=== PATIENT | male | born 1985 | race Hispanic/Latino ===

== ENCOUNTER 2017-02-07 11:06 | Emergency (ER) | payer OTHER ==
[~2017-02-07] VITALS: Ht 172.7 cm; Wt 80.9 kg
[2017-02-07 11:10] VITALS: BP 129/91; PULSE 71; RESP 15; O2SAT 99
--- NOTE | 2017-02-07 12:03 | ED.REPORT ---
HPI-General Illness Date of Service Feb 07, 2017 ED Provider: Inderjit Gilliam MD Pt is a 31 year old male presenting to the ED complaining of lower back (4/10) and LLQ throbbing abdominal pain (3/10) onset after a table fell on his abdomen yesterday while he was carrying it downstairs at 1200. Pain is not really radiating, worse w/ movement. He also fell down 15 steps and landed at the bottom of the steps. He denies hitting his head or LOC. He states that his main concern was that this morning when he woke up he could barely move, and he has had right shoulder pain since yesterday. No other alleviating or exacerbating factors. No other complaints at this time. He is ambulatory and drove himself to the hospital today. Nursing Notes Stated Complaint: LWER BACK PAIN, POST FALL Chief Complaint: Multiple Trauma/Fall Nursing Notes Reviewed: Yes Allergies: Coded Allergies: No Known Allergies (Unverified , 02/07/17) General Time Seen by MD: 11:17 Chief Complaint Abdominal pain, Back pain Hx Obtained From: Patient Arrived By: Walk-in Sudden in Onset?: Yes Onset Occurred: Yesterday Symptom Duration: Since onset Caused by: Fall down stairs Location: : Abdomen: Back Quality: Painful, Throbbing Radiation: : Does not radiate Severity: Current: Pain level 4 out of 10 Severity: Maximum: Severe Recent Healthcare: No recent doctor visit, No recent hospitalization Similar Sx Previous: No Past Medical History Past Medical History Denies Past Surgical History Reports: Cholecystectomy Family History Denies any pertinent family hx Smoking History Never Smoker Social History Alcohol Use: "Social" Drug Use: Denies drug use Ambulatory Status Independent Review of Systems Full Review of Systems Constitutional: Denies: Chills, Fever Eyes: Denies: Blurred bilateral Ears / Nose / Throat: Denies: Earache bilateral Respiratory: Denies: Shortness of breath, Wheezing Cardiovascular: Denies: Chest pain GI: Reports: Abdominal pain, Denies: Vomiting Musculoskeletal: Reports: Back pain, Joint pain (Shoulder) Skin: Denies Swelling Neurologic: Denies: Change LOC, Headache Psychiatric: Denies: Agitation Complete sys rev & neg: except as marked. Physical Exam General: Airway patent, GCS of 15 --- eyes (4), verbal (5), motor (6) HEENT: Right eye normal with pupils 4-3 and briskly reactive Left eye normal with pupils 4-3 and briskly reactive Left tympanic membrane normal, right tympanic membrane normal Midface stable, no malocclusion No nasal septal hematoma No obvious external signs of trauma to the scalp appreciated No malocclusion or hemotympanum. Neck: nontender, trachea midline Lungs: Clear to auscultation bilaterally, normal work of breathing. Small amount of chest wall tenderness to palpation of lower part of chest. No crepitus. Chest: Stable without tenderness, no crepitus Cardiac: Regular rate and rhythm Abdomen: Epigastric and LLQ tenderness. Midline abdominal scar well healed. Back: Lower thoracic and upper lumbar tenderness to palpation. Pelvis: Stable Skin: Warm and well perfused Extremities: Left upper extremity grossly normal, no deformity. Right upper extremity grossly normal, no deformity. Right lower extremity grossly normal, no deformity. Left lower extremity grossly normal, no deformity. Mild diffuse tenderness to right shoulder. No bony tenderness. Pulses: Palpable to bilateral upper and lower extremities Neuro: Motor and sensory exams grossly within normal limits; patient localizes to pain. Vital Signs Vital Signs Date Time Temp Pulse Resp B/P Pulse Ox O2 Delivery O2 Flow Rate FiO2 02/07/17 15:33 36.6 72 20 118/59 98 Room Air 02/07/17 13:36 36.7 72 20 112/62 97 Room Air 02/07/17 11:10 36.9 71 15 129/91 99 Room Air Initial VS: Reviewed Interpretation & Diagnostics Interpretation & Diagnostics: REPEAT CT ABD/ PELVIS: IMPRESSION: 1. Small linear hypodensity in the right hepatic lobe appears unchanged from the recent prior study with no associated hematoma or free fluid identified. The finding is of doubtful clinical significance and unlikely to represent a laceration. 2. Elsewhere, no definite acute traumatic abnormality within the abdomen. Dictated by: Amol Sandra M.D. on 02/07/2017 at 18:16 Lab Results Interpretation Result Diagram: 02/07/17 1238 02/07/17 1238 Test 02/07/17 12:38 02/07/17 12:55 02/07/17 17:25 White Blood Count 7.5th/mm3 (3.8-10.1) Red Blood Count 5.29mil/mm3 (4.40-5.80) Hemoglobin 15.0g/dL (13.8-17.2) Hematocrit 44.9% (41.0-50.0) Mean Corpuscular Volume 84.9fL (81-100) Mean Corpuscular Hemoglobin 28.4pg (27.0-35.0) Mean Corpuscular Hemoglobin Concent 33.4% (32.0-37.0) Red Cell Distribution Width 13.7% (12.3-15.4) Platelet Count 151bil/L (150-400) Neutrophils (%) (Auto) 65.8% (40-74) Lymphocytes (%) (Auto) 24.8% (14-46) Monocytes (%) (Auto) 7.2% (4-12) Eosinophils (%) (Auto) 0.9% (0-5) Basophils (%) (Auto) 0.4% (0-3) Sodium Level 141mEq/L (134-144) Potassium Level 4.2mEq/L (3.5-5.2) Chloride Level 101mEq/L (97-108) Carbon Dioxide Level 25mmol/L (18-29) Blood Urea Nitrogen 14mg/dL (6-20) Creatinine 0.79mg/dL (0.76-1.27) Estimat Glomerular Filtration Rate 122mL/min (>59) Glucose Level 101mg/dL (60-99) Calcium Level 9.3mg/dL (8.5-10.1) Magnesium Level 2.2mg/dL (1.6-2.6) Total Bilirubin 0.3mg/dL (0.0-1.2) Aspartate Amino Transf (AST/SGOT) 16U/L (0-50) Alanine Aminotransferase (ALT/SGPT) 22U/L (0-44) Alkaline Phosphatase 73U/L (25-150) Troponin T < 0.010ug/L (0.0-0.011) Total Protein 7.3g/dL (6.4-8.4) Albumin 4.4g/dL (3.4-5.0) Hold Perez Top Tube Received (Received) Alcohols < 10mg/dL (0-10) Prothrombin Time 10.7sec (8.1-12.5) Prothromb Time International Ratio 1.00ratio Activated Partial Thromboplast Time 26.1sec (22.8-33.0) Urine Color Straw (YELLOW) Urine Appearance Clear (CLEAR,HAZY) Urine pH 7.0 (5.0-8.0) Urine Specific [place] 1.005 (1.003-1.035) Urine Protein Negativemg/dL (NEG,TRACE) Urine Glucose (UA) Negativemg/dL (NEGATIVE) Urine Ketones Negativemg/dL (NEGATIVE) Urine Occult Blood Negative (NEGATIVE) Urine Nitrite Negative (NEGATIVE) Urine Bilirubin Negative (NEGATIVE) Urine Urobilinogen Normalmg/dL (NORMAL) Urine Leukocyte Esterase Negative (NEGATIVE) Urine RBC 0-2/hpf (0-2) Urine WBC 0-5/hpf (0-5) Urine Epithelial Cells None/hpf (NONE-MOD) Urine Crystals None seen (NONE SEEN) Urine Bacteria None/hpf (NONE-FEW) Urine Hyaline Casts None/lpf (NONE) Urine Granular Casts None seen (NONE SEEN) Urine Waxy Casts None seen (NONE SEEN) Urine Red Blood Cell Casts None seen (NONE SEEN) Urine White Blood Cell Casts None seen (NONE SEEN) Urine Mucus None seen (None Seen) Urine Trichomonas None seen (NONE SEEN) Urine Yeast None (NONE SEEN) Urinalysis Comment None ECG Interpretation ECG Interpretation: ST elevation, probable normal early repol pattern. Time: 12:15 Interpreted by: ED physician Normal ECG Interpretation: Normal rate (72), Normal sinus rhythm X-Ray Interpretation Xray Interpretation: IMPRESSION: Normal right shoulder. Dictated by: Charles uHerta M.D. on 02/07/2017 at 13:56 X-Ray Ordered: Shoulder right Interpretation / Wet Read by: Interpret - Radiologist CT Head Interpretation IMPRESSION: 1. No acute intracranial findings. 2. 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 Dictated by: Alee Roa M.D. on 02/07/2017 at 14:15 Study: Head CT no contrast Interpretation / Wet Read by: Interpret - Radiologist CT Abd / Pelvis Interpretation IMPRESSION: 1. Subtle hepatic hypodensity along the posterior capsule of the right lobe. Small hepatic laceration cannot be excluded. However, there is no associated fluid collection to suggest hemoperitoneum. If the patient endorses focal right upper quadrant pain (or referred pain to the right shoulder), repeat surveillance scan of the abdomen at 4 hours may be helpful to exclude interval peritoneal bleed. 2. No other findings to suggest acute thoracic or abdominal injury. These findings were discussed with Dr. Gilliam at 2:29 PM on 01/28/17. 3. Normal appendix. Dictated by: Alee Roa M.D. on 02/07/2017 at 14:20 Study type: Abdominal CT IV contrast Interpretation / Wet Read by: Interpret - Radiologist CT C-Spine Interpretation IMPRESSION: 1. No acute cervical spine injury. Dictated by: Alee Roa M.D. on 02/07/2017 at 14:18 Study type: CT no contrast Interpretation / Wet Read by: Interpret - Radiologist Re-Eval/Medical Decision Med Decision/Clinical Course In summary, 31-year-old male presenting to the ED for evaluation after a fall down some stairs yesterday that resulted in a table landing on his abdomen. Differential is broad and includes acute intra-abdominal injury such as a splenic or liver laceration, small bowel contusion, pneumothorax, pancreatic injury, rib fractures, etc. Primary and secondary survey performed upon initial evaluation, noted above. X-ray of the patient's right shoulder negative for acute fracture or abnormality. CT scan of the patient's abdomen and pelvis demonstrates a subtle hepatic hypodensity on the posterior capsule of the right lobe; given his right shoulder pain, and after discussion with the radiologist, the decision was made to obtain a repeat scan in 4 hours. I also discussed this with the on-call surgeon Dr. Garcia. The repeat scan was negative for interval change. Laboratory studies here reassuring, reviewed. Head CT and C-spine CT negative for acute abnormalities; he does have some prior granulomatous disease, and I discussed this with him. He should follow up with his primary doctor with respect to this no neurological abnormalities, recent fever, or other complaints. Given the above, reasonable to discharge home with very careful return precautions, PCP follow-up in the next 1-2 days. Patient agreeable to the plan as stated, no further questions. Time of Eval: 14:56 Patient Status: Condition improved Re-Evaluation/Progress Note: Discussed CT and x ray results. Pt denies any recent fever, headache, or vision changes. Discussed plan for repeat CT and then discharge. Pt understands and agrees with plan. Consultation #1: Referral / Consult Name: Alee Roa MD Call Returned at: 14:51 Note: Radiologist. 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 Consultation #2: Referral / Consult Name: Les Garcia MD Consulted With: Surgeon Call Returned at: 17:00 Note: If the repeat scan at 4 hours doesn't show a change given he's 1 day out from the injury, it is reasonable to discharge with PCP follow up. Counseled Regarding: Diagnosis, Lab results, Need for follow-up, When/why to return to ED Discharge & Departure Primary Impression: Abdominal pain Abdominal location: generalized Qualified Code: R10.84 - Generalized abdominal pain Additional Impression: Fall Encounter type: initial encounter Qualified Code: W19.XXXA - Unspecified fall, initial encounter Disposition: Home Discharge Condition All VS Reviewed: Yes Condition: Improved Patient Instructions: Blunt Abdominal Injury (ED), Fall Prevention (ED) Additional Instructions: Your CT scans today did not show any dangerous cause for your pain today. Return to the ER if you develop any new or concerning symptoms such as abdominal pain, weakness, dizziness, severe headache, vision changes, or numbness/tingling in your feet or arms. Follow up with the primary doctor in the next several days as discussed. [employer] TRANSLATE Duncan tomografa computarizada hoy no mostr ninguna causa peligrosa para duncan dolor hoy. Vuelva a la manuel de emergencias si presenta sntomas nuevos o relacionados con sntomas tales bruna dolor abdominal, debilidad, mareos, dolor de beka mitch, cambios en la visin o entumecimiento / hormigueo en los pies o los brazos. Seguimiento con el mdico de cabecera en los prximos mckeon, bruna se arciniega comentado. Referrals: [facility] Scribe Attestation Portions of this note were transcribed by Victorina Del Toro. I, Dr. Gilliam personally performed the history, physical exam and medical decision-making; I reviewed and confirmed the accuracy of the information in the transcribed note. Signed by: Edin Carranza, 02/07/2017. copies to: [facility] Inderjit Gilliam MD Feb 07, 2017 12:03 VICTORINA DEL TORO Feb 07, 2017 12:38
[2017-02-07] MEDS ORDERED: 0.9% Sodium Chloride 1,000 ML IV ONE (12:09)
[2017-02-07] MEDS ORDERED: HYDROmorphone 0.5 mg/0.5 mL iSecure Syringe IVPUSH PRN (12:10)
[2017-02-07] MEDS ORDERED: Ondansetron 2 mg/mL 2 mL Inj IVPUSH ONE (12:10)
[2017-02-07 12:53] LABS: BASOPHILS % (AUTO) 0.4 % (0-3); EOSINOPHILS % (AUTO) 0.9 % (0-5); MONOCYTES % (AUTO) 7.2 % (4-12); Mean Corpuscular Hemoglobin 28.4 pg (27.0-35.0); Mean Corpuscular Volume 84.9 fL (81-100); NEUTROPHILS % (AUTO) 65.8 % (40-74); Platelet Count 151 bil/L (150-400)
[2017-02-07 13:26] LABS: TROPONIN T < 0.010 ug/L (0.0-0.011)
[2017-02-07 13:36] VITALS: BP 112/62; PULSE 72; RESP 20; O2SAT 97
[2017-02-07 13:36] LABS: Magnesium 2.2 mg/dL (1.6-2.6)
--- NOTE | 2017-02-07 14:20 | DRSVH ---
PROCEDURE: CT BRAIN WITHOUT CONTRAST ([id number]) INDICATIONS: abdominal pain s/p trauma TECHNIQUE: Noncontrast 4.5 mm thick angled axial sections acquired from the foramen magnum to the vertex, with c oronal reformats. COMPARISON: None. FINDINGS: Image quality: Excellent. CSF spaces: Basal cisterns are patent. No extra-axial fluid collections. Ventricles are normal in size and shape. Brain: No midline shift. No intracranial masses or hemorrhage. A punctate calcification is present within the left parietal lobe consistent with granulomatous disease. Manuel-white matter interface is normal. Skull and face: Calvarium and visualized facial bones are intact, without suspicious lesions. Sinuses: Visualized sinuses and mastoids are clear. IMPRESSION: 1. No acute intracranial findings. 2. 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 Dictated by: Alee Roa M.D. on 02/07/2017 at 14:15 Approved by: Alee Roa M.D. on 02/07/2017 at 14:18
--- NOTE | 2017-02-07 14:22 | DRSVH ---
PROCEDURE: CT CERVICAL SPINE WITHOUT CONTRAST ([id number]) INDICATIONS: abdominal pain s/p trauma TECHNIQUE: Noncontrast 3 mm thick sections acquired from the skull base to the T4 level. Sagittal and coronal r eformats were then constructed. For radiation dose reduction, the following was used: automated exp osure control, adjustment of mA and/or kV according to patient size. COMPARISON: [facility], CR, XR SHOULDER MIN 2VW RT, 02/07/2017, 13:24. FINDINGS: Image quality: Excellent. Bones: No fractures or dislocations. Visualized superior ribs are intact. Soft tissues: Prevertebral soft tissues are normal in thickness. No paravertebral hematomas. No ap ical pneumothoraces. IMPRESSION: 1. No acute cervical spine injury. Dictated by: Alee Roa M.D. on 02/07/2017 at 14:18 Approved by: Alee Roa M.D. on 02/07/2017 at 14:20
--- NOTE | 2017-02-07 14:33 | DRSVH ---
PROCEDURE: CT CHEST, ABDOMEN AND PELVIS WITH CONTRAST ([id number]) INDICATIONS: abdominal pain s/p trauma TECHNIQUE: After the administration of intravenous contrast, 5 mm thick sections acquired from the lung apices t o the symphysis. 5 mm coronal and sagittal reformats were performed, with additional 7 mm MIP reform ats through the lungs. For radiation dose reduction, the following was used: automated exposure con trol, adjustment of mA and/or kV according to patient size. COMPARISON: [facility], CR, XR SHOULDER MIN 2VW RT, 02/07/2017, 13:24. FINDINGS: Image quality: Excellent. CHEST: Lungs and pleura: No acute airspace opacities. No pleural effusions or pneumothorax. Central and p eripheral airways appear patent and normal in caliber. Mediastinum: Heart size is normal. No pericardial effusion. No mediastinal or hilar adenopathy by size criteria. Thoracic aorta and central pulmonary arteries are normal in size. Esophagus is tangela l in caliber. No hiatal hernia. Chest wall: No axillary or supraclavicular adenopathy by size criteria. Thyroid gland is unremarkab le. ABDOMEN: Solid organs: Liver and spleen are normal in size and enhancement. A linear, sagittally oriented hyp odensity is present along the posterior capsule of the right hepatic lobe (series 11, images 47-49). There is no discrete fluid collection adjacent to this hyperdense region. Gallbladder is not visuali zed and may be surgically absent. Biliary system is non dilated. Pancreas enhances normally. No ad renal nodules. Kidneys demonstrate normal size and enhancement, without hydronephrosis. Peritoneum and bowel: Bowel loops demonstrate normal wall thickness and caliber. Normal appendix. N o free fluid or air. Nodes and vessels: No retroperitoneal or mesenteric adenopathy by size criteria. Aorta and inferior vena cava are normal in size. Miscellaneous: No ventral hernias. PELVIS: Genitourinary: Bladder wall thickness is normal. Miscellaneous: No inguinal adenopathy. There is a small fat containing right inguinal hernia. Bones: No suspicious bony lesions. No vertebral body compression fractures. A probable bone island is present within the L5 vertebral body. IMPRESSION: 1. Subtle hepatic hypodensity along the posterior capsule of the right lobe. Small hepatic laceration cannot be excluded. However, there is no associated fluid collection to suggest hemoperitoneum. If t he patient endorses focal right upper quadrant pain (or referred pain to the right shoulder), repeat surveillance scan of the abdomen at 4 hours may be helpful to exclude interval peritoneal bleed. 2. No other findings to suggest acute thoracic or abdominal injury. These findings were discussed with Dr. Gilliam at 2:29 PM on 01/28/17. 3. Normal appendix. Dictated by: Alee Roa M.D. on 02/07/2017 at 14:20 Approved by: Alee Roa M.D. on 02/07/2017 at 14:30
--- NOTE | 2017-02-07 14:58 | DRSVH ---
PROCEDURE: X-RAY RIGHT SHOULDER, MINIMUM TWO VIEWS ([id number]) INDICATIONS: shoulder pain TECHNIQUE: 3 views of the shoulder were acquired. COMPARISON: None. FINDINGS: Bones: No fractures or dislocations. No suspicious bony lesions. Visualized ribs appear intact. Soft tissues: No suspicious soft tissue calcifications. IMPRESSION: Normal right shoulder. Dictated by: Charles Huerta M.D. on 02/07/2017 at 13:56 Approved by: Charles Huerta M.D. on 02/07/2017 at 13:56
[2017-02-07 15:33] VITALS: BP 118/59; PULSE 72; RESP 20; O2SAT 98
[2017-02-07 17:37] LABS: APPEARANCE,URINE CLEAR (CLEAR,HAZY); COLOR,URINE STRAW (YELLOW); OCCULT BLOOD,URINE NEGATIVE (NEGATIVE); UROBILINOGEN,URINE NORMAL (NORMAL)
--- NOTE | 2017-02-07 18:23 | DRSVH ---
PROCEDURE: CT ABDOMEN WITHOUT CONTRAST ([id number]) INDICATIONS: Status post trauma with abdominal pain. Followup of small liver hypodensity on prior CT . TECHNIQUE: After the administration of oral contrast, 5 mm thick sections acquired from the diaphragms to the il iac crests. 5 mm coronal and sagittal reformats were then performed. For radiation dose reduction, the following was used: automated exposure control, adjustment of mA and/or kV according to patient size. COMPARISON: [facility], CT, CT CHEST ABD PELVIS W CON, 02/07/2017, 13:50. FINDINGS: Image quality: Excellent. Lung bases: There is mild dependent atelectasis. Heart size is normal. Solid organs: A small peripheral linear hypodensity is redemonstrated along the posterior right hepa tic lobe, unchanged in appearance from the prior study. No associated subcapsular hematoma or perihe patic free fluid identified. The liver otherwise demonstrates normal appearance. The spleen is norm al in size without lacerations. Pancreas is normal in contours. No adrenal nodules. Kidneys demons trate no hydronephrosis. There is excreted contrast in the renal collecting systems from recent CT. Peritoneum and bowel: Visualized bowel loops demonstrate normal wall thickness and caliber. No free fluid or air. Nodes and vessels: No retroperitoneal or mesenteric adenopathy by size criteria. Aorta and inferior vena cava are normal in size. Bones: No suspicious bony lesions. No vertebral body compression fractures. Miscellaneous: No ventral hernias. IMPRESSION: 1. Small linear hypodensity in the right hepatic lobe appears unchanged from the recent prior study with no associated hematoma or free fluid identified. The finding is of doubtful clinical significan ce and unlikely to represent a laceration. 2. Elsewhere, no definite acute traumatic abnormality within the abdomen. Dictated by: Amol Sandra M.D. on 02/07/2017 at 18:16 Approved by: Amol Sandra M.D. on 02/07/2017 at 18:20
[2017-02-07 19:13] VITALS: BP 124/75; PULSE 68; RESP 14; O2SAT 98
== END 2017-02-07 19:05 | disposition home or self-care (01) ==
LOC: SED 11:06
DX: R10.84 Generalized abdominal pain (principal); W22.8XXA Striking against or struck by other objects, initial encounter; W10.8XXA Fall (on) (from) other stairs and steps, initial encounter; Y93.89 Activity, other specified; Y92.89 Other specified places as the place of occurrence of the external cause; Y99.8 Other external cause status
CPT/HCPCS: 36415; 70450; 71260; 72125; 73030; 74150; 74177; 80053; 81001; 83735; 84484; 85025; 85610; 85730; 86850; 93005; 96374; 96375; 99285; G0480; J1170; J2405; J7030; Q9967